=== PATIENT | male | born 1990 | race Two or more races ===

== ENCOUNTER 2024-09-12 12:52 | Emergency (ER) | payer MEDICAID, SELFPAY ==
[2024-09-12] VITALS (9 sets, daily range): BP systolic 123–178; BP diastolic 76–110; PULSE 67–116; RESP 18–20; TEMP 36.4–37.8; O2SAT 93–97; BMI 27.1
--- NOTE | 2024-09-12 13:07 | XR_ITS ---
Examination: CT abdomen and pelvis without contrast. Coronal 3-D reconstructions. Sagittal 2-D reconstructions. Date and time of exam:September 12, 2024 at 1410 hours Comparison August 14, 2022 INDICATIONS: Generalized abdominal pain today CTDI: vol (mGy): 7.69 DLP: (mGycm): 507 Technique: Axial images of the abdomen have been obtained, 3 mm slice thickness Intravenous contrast material has not been administered. Low dose protocols were performed. One or more of the following dose reduction techniques were used; automated exposure control, adjustment of the mA and/or KV according to patient size, use of iterative reconstruction technique. Findings: Dilated bronchi in the lower lobes No focal liver lesions Absent gallbladder Biliary stent satisfactory position No pancreatic or adrenal mass 4 mm nonobstructing left renal calculus No hydronephrosis or ureteral calculi 25 mm fat-containing umbilical hernia Normal appendix No bowel obstruction Contracted urinary bladder IMPRESSION: Mild bibasilar bronchiectasis Biliary stent satisfactory position with no extrahepatic biliary tract obstruction 4 mm nonobstructing left renal calculus
--- NOTE | 2024-09-12 13:08 | PD.EDRME ---
Rapid Medical Screening Exam RME Arrival date/time: 09/12/24 12:52 34-year-old male with a history of a cholecystectomy presents to the emergency room with a chief complaint of 10 out of 10 upper abdominal pain x 1 day. I have greeted and performed a focused initial assessment of this patient. A comprehensive ED assessment and evaluation of the patient, analysis of all test results, and completion of the medical decision making process will be conducted by additional ED providers. Chief Complaint: Abdominal Pain Vital signs reviewed by provider: Yes
[2024-09-12 13:29] LABS: Basophils % (Auto) 0 % (0-2.5); Eosinophils # (Auto) 0.1 Thou/mm3 (0.0-0.5); Eosinophils % (Auto) 0 % (0-10); Hemoglobin 12.7 g/dL (13.5-16.0); Immature Granulocytes % (Auto) 0 % (0-0); Immature Granulocytes Auto 0.02 Thou/mm3 (0.00-0.00); Lymphocytes # (Auto) 0.8 Thou/mm3 (1.0-4.8); Lymphocytes % (Auto) 7 % (10-50); Mean Corpuscular HGB Conc 33.4 g/dl (31.0-37.0); Mean Corpuscular Hemoglobin 29.8 pg (25.0-35.0); Mean Corpuscular Volume 89 fL (80-100); Monocytes % (Auto) 8 % (0-12); Neutrophils # (Auto) 10.2 Thou/mm3 (1.8-7.7); Neutrophils % (Auto) 84 % (37-80); Nucleated Red Blood Cell % 0 /100 WBC (0); Platelet Count 397 Thou/mm3 (140-440); Red Blood Count 4.26 Miln/mm3 (4.50-5.90); White Blood Count 12.1 Thou/mm3 (3.8-10.6)
[2024-09-12] MEDS: ONDANSETRON ODT 4 MG TABRAP PO (13:33)
[2024-09-12] MEDS: HYDROcodone/APAP 5/325 TABLET 1 TAB PO (13:33)
[2024-09-12 13:44] LABS: Collection Type, Urine Clean Catch; Squamous Epithelial Cell,Urine 0 /hpf (0-5)
[2024-09-12 13:53] LABS: Alanine Aminotransferase 245 U/L (10-49); Albumin, Serum 3.7 gm/dL (3.5-5.0); Albumin/Globulin Ratio 1.2 (1.2-2.2); Alkaline Phosphatase 374 U/L (46-116); Anion Gap 8 (7-16); Aspartate Amino Transferase 206 U/L (0-34); BUN/Creatinine Ratio 10 Ratio (12-20); Bilirubin,Total 1.5 mg/dL (0.3-1.2); Blood Urea Nitrogen 9 mg/dL (9-23); Calcium (Corrected) 9.2 mg/dL (8.5-10.1); Carbon Dioxide 25.1 mMol/L (20.0-31.0); Chloride 106 mMol/L (98-107); Creatinine (Component) 0.9 mg/dL (0.6-1.3); Estimated Creatinine Clearance 126.9 mL/min (>60); Glucose 121 mg/dL (74-106); Lipase 28 U/L (12-53); Osmolality,Calculated 277 (275-295); Potassium 3.8 mMol/L (3.4-5.1); Sodium 139 mMol/L (136-145); Total Protein 6.7 gm/dL (5.7-8.2); eGFR > 60 See Note
[2024-09-12 13:59] LABS: Bacteria,Urine Rare; Bilirubin,Urine 1+ (Negative); Blood,Urine Negative (Negative); Clarity,Urine Clear (Clear/Hazy); Color,Urine Yellow (Lt Yel-Yel); Glucose, Urine Negative (Negative); Ketones,Urine Negative (Negative); Leukocyte Esterase,Urine Negative (Negative); Nitrite,Urine Negative (Negative); PH,Urine 6.5 (5.0-7.0); Protein,Urine Negative (Neg - Trace); RBC,Urine 5 /hpf (0-3); Specific Gravity,Urine 1.017 (1.001-1.035); Urobilinogen,Urine OVER mg/dL (0.0-1.0); WBC,Urine 2 /hpf (0-5)
--- NOTE | 2024-09-12 17:55 | PD.EDADULT ---
ED General RME/HPI General Chief complaint: Abdominal Pain Stated complaint: ABD PAIN Time Seen by Provider: 09/12/24 17:54 Arrival date/time: 09/12/24 12:52 CC: Right upper quadrant abdominal pain HPI onset this afternoon progressive increase in severity fairly tender. The patient is significant history of a cholecystectomy in 2021. Patient has a biliary stent. Patient states everything is fine until this afternoon. Currently the pain is an 8 on 10 scale patient is nauseated with no vomiting. Review of the medical records show cholecystectomy was performed by Dr. Guillen in 2021. RME / HPI RME / HPI narrative: 09/12/24 12:52 34-year-old male with a history of a cholecystectomy presents to the emergency room with a chief complaint of 10 out of 10 upper abdominal pain x 1 day. I have greeted and performed a focused initial assessment of this patient. A comprehensive ED assessment and evaluation of the patient, analysis of all test results, and completion of the medical decision making process will be conducted by additional ED providers. Related Data Previous Rx's ?Medication ?Instructions ?Recorded oxycodone-acetaminophen 5 mg-325 1 tab PO Q6H PRN pain #10 tabs 03/01/22 mg tablet (Percocet) ibuprofen 800 mg tablet 800 mg PO TID PRN pain #30 tabs 03/09/22 Allergies Allergy/AdvReac Type Severity Reaction Status Date / Time Sulfa (Sulfonamide Allergy Severe Hives Verified 09/12/24 12:55 Antibiotics) Review of Systems Review of Systems Narrative Review of Systems: GEN: No fever, no chills, no weight loss EYES: No discharge, no visual changes, no pain HEENT: No ear pain, no congestion, no sore throat PULM: No shortness of breath, no cough, no congestion CV: No chest pain, no dyspnea on exertion, no palpitations GI: + nausea, no vomiting, no diarrhea, + pain, no constipation : No frequency, no urgency, no dysuria MUSC/SKEL: No joint pain, no back pain SKIN: No rash PSYCH: No hallucinations, no depression HEME/LYMPH: No easy bleeding or bruising tendencies NEURO: No weakness, no headache ED Exam Narrative Physical exam: [General: Moderate discomfort but not in any acute distress Head normocephalic HEENT: Within acceptable limits Neck is supple nontender Chest equal chest rise nontender to palpation Respiratory: Clear to auscultation no wheezes crackles or rubs CV: Rate rhythm is regular no murmurs rubs or clicks Abdomen: Right upper quadrant tenderness exquisite tenderness, with reflexive guarding no rebound tenderness mild epigastric no left upper quadrant no lower quadrant tenderness with palpation positive bowel sounds. Back: No CVA tenderness no spinous process tenderness from cervical spine thoracic and lumbar spine Skin: Intact no petechiae rash induration ulceration or crepitus Extremities: Moving all extremity against resistance cap refill less than 2 seconds neurosensory intact Neuro: Awake alert oriented x3 Glascow coma 15 no focal deficits] Course Quality Measures none Orders Category Date Time Status Saline [Insert IV] NOW Care 09/12/24 19:28 Active Transfer to another facility [Transfer/Discharge] Stat Discharge 09/12/24 19:[address] abdomen pelvis wo con Stat Exams 09/12/24 13:07 Completed Blood Culture (Lab) Stat Lab 09/12/24 19:45 Received CBC Stat Lab 09/12/24 13:15 Completed CMP [Comprehensive Metabolic Panel] Stat Lab 09/12/24 13:15 Completed Lipase Stat Lab 09/12/24 13:15 Completed UA [Urinalysis] Stat Lab 09/12/24 13:36 Completed Urine Culture Stat Lab 09/12/24 13:36 Received HYDROcodone*/APAP 5/325 [[place] 5/325] Med 09/12/24 13:07 Discontinued 1 tab PO X1 ONE Morphine Inj Med 09/12/24 19:37 Discontinued 4 mg IVP X1 ONE Ondansetron Inj [Zofran Inj] Med 09/12/24 19:37 Discontinued 4 mg IV X1 ONE Ondansetron Odt [Zofran Odt] Med 09/12/24 13:07 Discontinued 4 mg PO X1 ONE Piper/Tazo 3.375 gm Premix [Zosyn] Med 09/12/24 19:28 Discontinued 3.375 gm in 50 ml IV X1 Sodium Chloride 0.9% 1000 ml [Ns] 1,000 ml Med 09/12/24 19:38 Active IV 125 mls/hr Sodium Chloride 0.9% 1000 ml [Ns] 1,000 ml Med 09/12/24 19:28 Discontinued IV 999 mls/hr oxyCODONE/APAP 5/325 [Percocet 5/325] Med 09/12/24 17:43 Discontinued 1 tab PO X1 ONE Vital Signs Vital signs: Vital Signs Temperature 97.5 F 09/12/24 13:12 Pulse Rate 86 09/12/24 13:12 Respiratory Rate 20 09/12/24 13:12 Blood Pressure 123/76 09/12/24 13:12 Pulse Oximetry (%) 97 09/12/24 13:12 Oxygen Delivery Method Room Air 09/12/24 13:12 [facility] Patient data External records reviewed:: [facility] previous records Clinical information provided by:: patient Social determinants that could affect healthcare access:: none Patient has the following chronic illnesses:: None How is presenting disease/condition affected by chronic disease/condition?: uneffected by Evaluation data The following diagnostics were reviewed and interpreted by me:: lab results and radiology exam(s) Lab and/or radiology exams considered but not ordered:: CC: Leukocytosis of 12.1 H&H of 12.7 and 38.0. No thrombocytopenia CMP shows no acute electrolyte imbalances. T. bili is elevated at 1.5 there is transaminitis. When compared to last lab draw which is in August 2023 there is a worsening of the transaminitis as well as the T. bili rise. Interpretation Summary: Concern for cholangitis. Patient's case discussed with Dr. Estrada GI at 1930 who agrees the patient probably has cholangitis secondary to an obstructed biliary stent. Will start the patient on broad-spectrum antibiotics and transfer out. Medications Medications considered but not ordered:: None Medication administrations:: Medication Administration History Sodium Chloride (Ns) 1,000 mls @ 125 mls/hr IV .Q8H MARTI Stop: 10/12/24 19:37 Last Admin: 09/12/24 19:55 Dose: 125 mls/hr Documented By: EE Discontinued Medications Hydrocodone Bitart/Acetaminophen (Hydrocodone/Apap 5/325 Tablet) 1 tab PO X1 ONE Stop: 09/12/24 13:08 Last Admin: 09/12/24 13:33 Dose: 1 tab Documented By: ELVIN Sodium Chloride (Ns) 1,000 mls @ 999 mls/hr IV .Q1H1M ONE Stop: 09/12/24 20:28 Last Admin: 09/12/24 19:53 Dose: 999 mls/hr Documented By: PRAVEEN Piperacillin/Tazobactam/Dextrose (Zosyn) 3.375 gm in 50 mls @ 100 mls/hr IV X1 ONE Stop: 09/12/24 19:57 Last Admin: 09/12/24 19:54 Dose: 100 mls/hr Documented By: EE Morphine Sulfate (Morphine Sulf Inj 10 Mg/Ml Vial) 4 mg IVP X1 ONE Stop: 09/12/24 19:38 Last Admin: 09/12/24 19:54 Dose: 4 mg Documented By: EE Ondansetron HCl (Ondansetron Odt 4 Mg Tabrap) 4 mg PO X1 ONE; Protocol Stop: 09/12/24 13:08 Last Admin: 09/12/24 13:33 Dose: 4 mg Documented By: KF Ondansetron HCl (Ondansetron Inj 2 Mg/Ml Inj 2 Ml) 4 mg IV X1 ONE; Protocol Stop: 09/12/24 19:38 Last Admin: 09/12/24 19:54 Dose: 4 mg Documented By: PRAVEEN Oxycodone/Acetaminophen (Oxycodone/Apap 5/325 Tablet) 1 tab PO X1 ONE Stop: 09/12/24 17:44 Last Admin: 09/12/24 17:57 Dose: 1 tab Documented By: KF None Consultations Consultation(s) initiated? (list below): No Consultation #1 (Physician, Specialty, Details): LIANA Arvizu Time: 21:05 Diagnosis Differential Diagnosis ED Complaint MDM: Cholangitis obstructed biliary stent sepsis Most likely diagnosis given after review of the tests above:: Obstructed biliary stent cholangitis Admission Indicated Admission indicated?: indicated Explain why admission is indicated or not indicated:: Transfer Admission Request Was there a request for admission?: No Disposition Plan Disposition Plan: Transfer Medical Decision Making Differential Diagnosis Differential Diagnosis: Cholangitis obstructed biliary stent sepsis Lab Data 09/12/24 13:15 09/12/24 13:15 Labs: Lab Results 09/12/24 09/12/24 Range/Units 13:15 13:36 WBC 12.1 H (3.8-10.6) Thou/mm3 RBC 4.26 L (4.50-5.90) Miln/mm3 Hgb 12.7 L (13.5-16.0) g/dL Hct 38.0 L (41.0-53.0) % MCV 89 (80-100) fL MCH 29.8 (25.0-35.0) pg MCHC 33.4 (31.0-37.0) g/dl RDW Std Deviation 43.0 (35.1-43.9) fL Plt Count 397 (140-440) Thou/mm3 Neut % (Auto) 84 H (37-80) % Lymph % (Auto) 7 L (10-50) % [place] % (Auto) 8 (0-12) % Eos % (Auto) 0 (0-10) % Baso % (Auto) 0 (0-2.5) % Neut # (Auto) 10.2 H (1.8-7.7) Thou/mm3 Lymph # (Auto) 0.8 L (1.0-4.8) Thou/mm3 [place] # (Auto) 1.0 H (0.0-0.8) Thou/mm3 Eos # (Auto) 0.1 (0.0-0.5) Thou/mm3 Baso # (Auto) 0.0 (0.0-0.2) Thou/mm3 Immature Gran # (Auto) 0.02 H (0.00-0.00) Thou/mm3 Absolute Nucleated RBC 0.00 (0.00-0.00) Thou/mm3 Immature Gran % 0 (0-0) % Nucleated RBC % 0 (0) /100 WBC Sodium 139 (136-145) mMol/L Potassium 3.8 (3.4-5.1) mMol/L Chloride 106 (98-107) mMol/L Carbon Dioxide 25.1 (20.0-31.0) mMol/L Anion Gap 8 (7-16) BUN 9 (9-23) mg/dL Creatinine 0.9 (0.6-1.3) mg/dL Estim Creat Clear Calc 126.9 (>60) mL/min eGFR > 60 (60 - ) See Note BUN/Creatinine Ratio 10 L (12-20) Ratio Glucose 121 H (74-106) mg/dL Calculated Osmolality 277 (275-295) Calcium 9.0 (8.3-10.6) mg/dL Corrected Calcium 9.2 (8.5-10.1) mg/dL Total Bilirubin 1.5 H (0.3-1.2) mg/dL AST 206 H (0-34) U/L ALT 245 H (10-49) U/L Alkaline Phosphatase 374 H (46-116) U/L Total Protein 6.7 (5.7-8.2) gm/dL Albumin 3.7 (3.5-5.0) gm/dL Globulin 3.0 (2.3-3.5) gm/dL Albumin/Globulin Ratio 1.2 (1.2-2.2) Lipase 28 (12-53) U/L Ur Collection Type Clean Catch Urine Color Yellow (Lt Yel-Yel) Urine Clarity Clear (Clear/Hazy) Urine pH 6.5 (5.0-7.0) Ur Specific [place] 1.017 (1.001-1.035) Urine Protein Negative (Neg - Trace) Urine Glucose (UA) Negative (Negative) Urine Ketones Negative (Negative) Urine Blood Negative (Negative) Urine Nitrite Negative (Negative) Urine Bilirubin 1+ A (Negative) Urine Urobilinogen (Auto) OVER (0.0-1.0) mg/dL Ur Leukocyte Esterase Negative (Negative) Urine RBC 5 H (0-3) /hpf Urine WBC 2 (0-5) /hpf Ur Squamous Epith Cells 0 (0-5) /hpf Urine Bacteria Rare (None) Discharge Plan Plan Patient Disposition: [facility] Pt Being Transferred to: [facility] Needed for Transfer: Gastroenterology Patient condition on transfer: Stable Prescriptions/Referrals Prescriptions/Med Rec: No Action ibuprofen 800 mg tablet 800 mg PO TID PRN (Reason: pain) Qty: 30 0RF oxycodone-acetaminophen [Percocet] 5-325 mg tablet 1 tab PO Q6H MDD 4 tabs PRN (Reason: pain) Qty: 10 0RF Referrals: Tanner Ferreira MD [Primary Care Provider] - In 1 week Problem List Clinical Impression: Ascending cholangitis, Biliary anastomotic stent occlusion Patient/Caregiver Discharge Instructions Print Language: Botswanan Stand Alone Forms: Sonia Award Info., Patient Portal Info Letter PA/INSTRUMENT MAKER AND REPAIRER Supervising Physician PA/INSTRUMENT MAKER AND REPAIRER Supervising Physician: Ethan Chance ENP
[2024-09-12] MEDS: oxyCODONE/APAP 5/325 TABLET 1 TAB PO (17:57)
[2024-09-12] MEDS: SODIUM CHLORIDE 0.9% 1000 ML 1,000 ML 999 ML IV ×2 (19:53→22:56)
[2024-09-12] MEDS: ONDANSETRON INJ 2 MG/ML INJ 2 ML 4 MG IV (19:54)
[2024-09-12] MEDS: MORPHINE SULF INJ 10 MG/ML VIAL 4 MG IVP (19:54)
[2024-09-12] MEDS: PIPER/TAZO 3.375 GM PREMIX 3.375 GM/50 ML BAG IV (19:54)
[2024-09-12] MEDS: SODIUM CHLORIDE 0.9% 1000 ML 1,000 ML 125 ML IV (19:55)
--- NOTE | 2024-09-12 21:13 | PC.NURSE ---
THIS PT IS ACCEPTED TO [facility] BY DR. WYNN. THIS IS ER:ER TRANSFER AND NUMBER FOR REPORT IS [phone]. BAUDILIO WAS THE FACILITY REP I SPOKE WITH FOR ACCEPTING INFORMATION.
[2024-09-12] MEDS: ACETAMINOPHEN IVPB 1,000 MG/100 ML VIAL 250 MG IV (22:55)
[2024-09-12 23:25] LABS: Lactate (Lactic Acid) 3.1 mMol/L (0.4-2.0)
[2024-09-12 23:53] LABS: Procalcitonin 1.76 ng/ml (0.0-0.49)
[2024-09-13] VITALS (13 sets, daily range): BP systolic 92–152; BP diastolic 61–91; PULSE 100–121; RESP 16–19; TEMP 36.8–38.3; O2SAT 93–99
[2024-09-13 01:04] LABS: Basophils % (Auto) 0 % (0-2.5); Eosinophils % (Auto) 0 % (0-10); Hematocrit 36.3 % (41.0-53.0); Hemoglobin 12.2 g/dL (13.5-16.0); Immature Granulocytes % (Auto) 0 % (0-0); Immature Granulocytes Auto 0.04 Thou/mm3 (0.00-0.00); Lymphocytes # (Auto) 0.4 Thou/mm3 (1.0-4.8); Lymphocytes % (Auto) 4 % (10-50); Mean Corpuscular HGB Conc 33.6 g/dl (31.0-37.0); Mean Corpuscular Hemoglobin 29.3 pg (25.0-35.0); Mean Corpuscular Volume 87 fL (80-100); Monocytes # (Auto) 0.2 Thou/mm3 (0.0-0.8); Monocytes % (Auto) 2 % (0-12); Neutrophils # (Auto) 9.7 Thou/mm3 (1.8-7.7); Neutrophils % (Auto) 94 % (37-80); Nucleated Red Blood Cell % 0 /100 WBC (0); Platelet Count 294 Thou/mm3 (140-440); RDW Standard Deviation 41.8 fL (35.1-43.9); Red Blood Count 4.16 Miln/mm3 (4.50-5.90); White Blood Count 10.3 Thou/mm3 (3.8-10.6)
[2024-09-13 01:35] LABS: Alanine Aminotransferase 230 U/L (10-49); Albumin, Serum 3.5 gm/dL (3.5-5.0); Albumin/Globulin Ratio 1.3 (1.2-2.2); Alkaline Phosphatase 330 U/L (46-116); Anion Gap 9 (7-16); Aspartate Amino Transferase 133 U/L (0-34); BUN/Creatinine Ratio 11 Ratio (12-20); Bilirubin,Total 5.4 mg/dL (0.3-1.2); Blood Urea Nitrogen 8 mg/dL (9-23); Calcium 8.7 mg/dL (8.3-10.6); Calcium (Corrected) 9.1 mg/dL (8.5-10.1); Carbon Dioxide 23.7 mMol/L (20.0-31.0); Chloride 104 mMol/L (98-107); Creatinine (Component) 0.7 mg/dL (0.6-1.3); Estimated Creatinine Clearance 163.2 mL/min (>60); Globulin 2.7 gm/dL (2.3-3.5); Glucose 89 mg/dL (74-106); Osmolality,Calculated 271 (275-295); Potassium 3.3 mMol/L (3.4-5.1); Sodium 137 mMol/L (136-145); Total Protein 6.2 gm/dL (5.7-8.2); eGFR > 60 See Note
[2024-09-13 02:24] LABS: Reflex Lactate? Y
[2024-09-13 02:43] LABS: Lactic Acid, 3 HR 1.7 mMol/L (0.4-2.0)
[2024-09-13] MEDS: SODIUM CHLORIDE 0.9% 1000 ML 1,000 ML 125 ML IV (04:22)
[2024-09-13] MEDS: SODIUM CHLORIDE 0.9% 1000 ML 1,000 ML 999 ML IV (04:22)
[2024-09-13] MEDS: PIPER/TAZO 3.375 GM PREMIX 3.375 GM/50 ML BAG IV (04:33)
--- NOTE | 2024-09-13 07:17 | PC.NURSE ---
REPORT CALLED TO [facility]. ALL QUESTIONS ANSWERED.
== END 2024-09-13 07:15 | disposition short-term general hospital (02) ==
PROVIDERS: Nurse Practitioner Family; Registered Nurse General Practice; Emergency Provider Emergency Medicine; PCP Family Medicine
DX: K83.09 Other cholangitis (principal)
CPT/HCPCS: 36415; 74176; 80053; 81001; 83605; 83690; 84145; 85025; 87040; 87077; 87086; 87186; 96361; 96365; 96367; 96375; 99284; 99285; J0131; J2270; J2405; J2543; J7030; Q0162; A9270

== ENCOUNTER 2024-11-05 11:01 | Emergency (ER) | payer MEDICAID, SELFPAY ==
[2024-11-05 11:05] VITALS: BMI 27.9
[2024-11-05 11:06] VITALS: BP 152/100; PULSE 83; RESP 17; TEMP 36.7; O2SAT 97
[2024-11-05 11:07] VITALS: BMI 27.9
--- NOTE | 2024-11-05 11:33 | XR_ITS ---
Examination: CT abdomen with intravenous contrast CT pelvis with intravenous contrast 2-D coronal reconstructions 2-D sagittal reconstructions Date and time of exam:November 05, 2024 at 12:10 PM Indications: Abdominal pain and rectal bleeding today. CTDI: vol (mGy) 8.62 DLP: (mGycm) 500 Technique: Multiple axial sections of the abdomen and pelvis have been obtained. 64 slice high-resolution scanner used. 3 mm axial sections have been obtained, post intravenous injection 60 cc [id number] 2-D sagittal, coronal reconstructions obtained. Low dose protocols were performed. One or more of the following dose reduction techniques were used; automated exposure control, adjustment of the mA and/or KV according to patient size, use of iterative reconstruction technique. Findings: Right infiltration throughout the liver no focal liver lesions Absent gallbladder Spleen not enlarged No pancreatic mass 8mm fat-containing adrenal adenoma 3 mm nonobstructing left renal calculus Aorta normal size Small fat-containing umbilical hernia. Normal appendix. No diverticulitis or nonspecific colitis pattern Normal seminal vesicles No prostatomegaly Contracted urinary bladder No rectal wall thickening No perianal abscess Impression: Fatty infiltration throughout the liver. 3 mm nonobstructing left renal calculus Normal appendix Negative for diverticulitis or nonspecific colitis pattern
--- NOTE | 2024-11-05 11:34 | PC.NURSE ---
PT BIB PD FOR MEDICAL CLEARANCE. PT STATES THAT THEY BEEN HAVING BLOOD IN STOOLS. PT STATES THAT STOOL IS DARK
[2024-11-05 12:16] LABS: Basophils # (Auto) 0.1 Thou/mm3 (0.0-0.2); Basophils % (Auto) 1 % (0-2.5); Eosinophils # (Auto) 0.1 Thou/mm3 (0.0-0.5); Eosinophils % (Auto) 1 % (0-10); Hematocrit 40.6 % (41.0-53.0); Hemoglobin 14.2 g/dL (13.5-16.0); Immature Granulocytes % (Auto) 0 % (0-0); Immature Granulocytes Auto 0.02 Thou/mm3 (0.00-0.00); Lymphocytes # (Auto) 1.5 Thou/mm3 (1.0-4.8); Lymphocytes % (Auto) 20 % (10-50); Mean Corpuscular Hemoglobin 29.5 pg (25.0-35.0); Mean Corpuscular Volume 84 fL (80-100); Monocytes # (Auto) 0.7 Thou/mm3 (0.0-0.8); Monocytes % (Auto) 9 % (0-12); Neutrophils # (Auto) 5.1 Thou/mm3 (1.8-7.7); Neutrophils % (Auto) 69 % (37-80); Nucleated Red Blood Cell % 0 /100 WBC (0); Platelet Count 317 Thou/mm3 (140-440); RDW Standard Deviation 41.1 fL (35.1-43.9); Red Blood Count 4.81 Miln/mm3 (4.50-5.90); White Blood Count 7.4 Thou/mm3 (3.8-10.6)
[2024-11-05 12:27] LABS: INR 1.1 (0.9-1.3); Partial Thromboplastin Time 28.5 Seconds (22.0-36.0); Prothrombin Time 11.5 Seconds (9.0-12.2)
[2024-11-05 12:30] LABS: B-Type Natriuretic Peptide < 20 pg/mL (0-100)
[2024-11-05 12:32] LABS: Alanine Aminotransferase 12 U/L (10-49); Albumin/Globulin Ratio 1.6 (1.2-2.2); Alkaline Phosphatase 89 U/L (46-116); Anion Gap 10 (7-16); Aspartate Amino Transferase 17 U/L (0-34); BUN/Creatinine Ratio 11 Ratio (12-20); Bilirubin,Total 0.4 mg/dL (0.3-1.2); Blood Urea Nitrogen 9 mg/dL (9-23); Calcium 8.8 mg/dL (8.3-10.6); Calcium (Corrected) 8.8 mg/dL (8.5-10.1); Carbon Dioxide 24.8 mMol/L (20.0-31.0); Chloride 109 mMol/L (98-107); Creatinine (Component) 0.8 mg/dL (0.6-1.3); Estimated Creatinine Clearance 154.5 mL/min (>60); Globulin 2.5 gm/dL (2.3-3.5); Glucose 94 mg/dL (74-106); Lipase 37 U/L (12-53); Osmolality,Calculated 285 (275-295); Potassium 4.6 mMol/L (3.4-5.1); Sodium 144 mMol/L (136-145); Total Protein 6.5 gm/dL (5.7-8.2); Troponin I < 0.020 ng/mL (0.0-0.045); eGFR > 60 See Note
--- NOTE | 2024-11-05 13:28 | PC.NURSE ---
pt not found in room or in the e.d. per mt, police cited pt out while nurse busy in another room.
--- NOTE | 2024-11-05 13:32 | EDNOTE_ITS ---
ED Abdominal Pain RME/HPI General Chief Complaint: Abdominal Pain Stated complaint: MEDICAL CLEARANCE,ABD PAIN/BLOOD IN [place] x 2 DAYS Time seen by provider: 11/05/24 11:13 Arrival date/time: 11/05/24 11:01 RME / HPI RME / HPI narrative: 34 year old male with history of s/p cholecystectomy, choledocholithiasis with stone extraction and stent placement 1 month ago per patient, presents to the ED BIB [facility] for medical clearance for incarceration today. Patient complains of abdominal pain that began yesterday. Described as aching in sensation that is located most to the left upper and lower abdomen without radiation. Accompanied by dark stools, burning rectal pain, increased urination, and foul smelling urine. Denies fevers, chills, sweats. Denies chest pain, cough, shortness of breath. Denies nausea, vomiting, diarrhea, constipation. No other associated symptoms reported. Related Data Previous Rx's ?Medication ?Instructions ?Recorded oxycodone-acetaminophen 5 mg-325 1 tab PO Q6H PRN pain #10 tabs 03/01/22 mg tablet (Percocet) ibuprofen 800 mg tablet 800 mg PO TID PRN pain #30 t abs 03/09/22 Allergies Allergy/AdvReac Type Severity Reaction Status Date / Time Sulfa (Sulfonamide Allergy Severe Hives Verified 09/12/24 12:55 Antibiotics) Review of Systems Review of Systems Narrative Review of Systems: GEN: No fever, no chills, no weight loss EYES: No discharge, no visual changes, no pain HEENT: No ear pain, no congestion, no sore throat PULM: No shortness of breath, no cough, no congestion CV: No chest pain, no dyspnea on exertion, no palpitations GI: No nausea, no vomiting, no diarrhea, +pain, +black stools, +rectal pain, no constipation : No frequency, no urgency, no dysuria MUSC/SKEL: No joint pain, no back pain SKIN: No rash NEURO: No weakness, no headache Past Medical History Past Medical History NEUROLOGIC: Negative Neurological Disorders CARDIAC: Negative Cardiac Disorders GASTROINTESTINAL: Negative Gastrointestinal Disorders GENITOURINARY: Negative Genitourinary Disorders or Renal Disease MUSCULOSKELETAL: Negative Musculoskeletal Disorders ENDOCRINE: Negative Endocrine Disorders Surgical History SURGICAL: Positive Ear Surgery and Throat Surgery Social History SMOKING STATUS: Current every day smoker SECOND HAND EXPOSURE: No ED Exam Narrative Physical exam: GENERAL APPEARANCE: alert and oriented x 4, well-developed, well-nourished, no acute distress HEENT: Normocephalic, atraumatic; pupils equal, round, reactive to light; EOMI; mucous membranes pink, moist; oropharynx clear NECK: Supple LUNGS: CTABL; no wheezes, no rales, no rhonchi HEART: Regular rate, regular rhythm; normal S1, S2; no murmurs ABDOMEN: non distended; normal BS; soft, LLQ tenderness, no guarding, no rebound; no masses, no organomegaly, no hernia BACK: no CVA tenderness EXTREMITIES: atraumatic; no edema NEUROLOGIC: awake; alert and oriented x4; cranial nerves II-XII grossly intact; no focal sensory or motor deficits PSYCHIATRIC: appropriate mood and affect SKIN: warm, dry, normal color; no rashes Course Quality Measures none Orders Category Date Time Status CT Screening NOW Care 11/05/24 11:33 Completed Infrastructure Project Manager NOW Care 11/05/24 11:33 Completed EKG (ED ONLY) *Do not use* NOW Care 11/05/24 11:[address] abdomen pelvis w con Stat Exams 11/05/24 11:33 Completed EKG (ED Only) Stat Exams 11/05/24 11:33 Ordered B-Type Natriuretic Peptide Stat Lab 11/05/24 11:48 Completed CBC Stat Lab 11/05/24 11:48 Completed Comprehensive Metabolic Panel Stat Lab 11/05/24 11:48 Completed Lipase Stat Lab 11/05/24 11:48 Completed Magnesium Stat Lab 11/05/24 11:48 Completed Partial Thromboplastin Time Stat Lab 11/05/24 11:48 Completed Prothrombin Time with INR Stat Lab 11/05/24 11:48 Completed Troponin I Stat Lab 11/05/24 11:48 Completed Vital Signs Vital signs: Vital Signs Temperature 98.1 F 11/05/24 11:06 Pulse Rate 83 11/05/24 11:06 Respiratory Rate 17 11/05/24 11:06 Blood Pressure 152/100 H 11/05/24 11:06 Pulse Oximetry (%) 97 11/05/24 11:06 Oxygen Delivery Method Room Air 11/05/24 11:06 Pulse ox is 97% on room air which is adequate. Abdominal Pain MDM MDM Narrative MDM Narrative:: Payton Richardson am scribing for and in the presence of Dr. Álvarez. 1330: Notified by RN that the patient was cited out by PD and xander. Patient data External records reviewed:: [facility] previous records (I reviewed ED visit on 12/2024 where he was transferred for ERCP) Clinical information provided by:: patient and law enforcement Social determinants that could affect healthcare access:: substance use Patient has the following chronic illnesses:: s/p cholecystectomy, choledocholithiasis with stone extraction and stent placement 1 month ago How is presenting disease/condition affected by chronic disease/condition?: exacerbated by Evaluation data The following diagnostics were reviewed and interpreted by me:: lab results and radiology exam(s) Lab and/or radiology exams considered but not ordered:: None Interpretation Summary: Ordering Physician: Malia Álvarez MD Date of Service: 11/05/24 Procedure(s): CT abdomen pelvis w con Accession Number(s): [id number] cc: Temo Miramontes MD; NO PRIMARY/FAMILY,PHYSICIAN; Malia Álvarez MD~ Examination: CT abdomen with intravenous contrast CT pelvis with intravenous contrast 2-D coronal reconstructions 2-D sagittal reconstructions Date and time of exam:November 05, 2024 at 12:10 PM Indications: Abdominal pain and rectal bleeding today. CTDI: vol (mGy) 8.62 DLP: (mGycm) 500 Technique: Multiple axial sections of the abdomen and pelvis have been obtained. 64 slice high-resolution scanner used. 3 mm axial sections have been obtained, post intravenous injection 60 cc [id number] 2-D sagittal, coronal reconstructions obtained. Low dose protocols were performed. One or more of the following dose reduction techniques were used; automated exposure control, adjustment of the mA and/or KV according to patient size, use of iterative reconstruction technique. Findings: Right infiltration throughout the liver no focal liver lesions Absent gallbladder Spleen not enlarged No pancreatic mass 8mm fat-containing adrenal adenoma 3 mm nonobstructing left renal calculus Aorta normal size Small fat-containing umbilical hernia. Normal appendix. No diverticulitis or nonspecific colitis pattern Normal seminal vesicles No prostatomegaly Contracted urinary bladder No rectal wall thickening No perianal abscess Impression: Fatty infiltration throughout the liver. 3 mm nonobstructing left renal calculus Normal appendix Negative for diverticulitis or nonspecific colitis pattern Dictated By: Temo Miramontes MD Signed By: <Electronically signed by Temo Miramontes MD in OV> 11/05/24 1411 Medications / Prescriptions Medications or Prescriptions considered but not ordered:: NOne Medication administrations:: None Consultations Consultation(s) initiated? (list below): No Diagnosis Differential diagnosis abdominal pain: abdominal pain, calculus of kidney, constipation, diverticulitis and gastroenteritis Most likely diagnosis given after review of the tests above:: Abdominal pain Admission Indicated Admission indicated?: not indicated Explain why admission is indicated or not indicated:: Patient eloped Admission Request Was there a request for admission?: No Disposition Plan Disposition Plan: other (specify) (Eloped ) Discharge Plan Plan Patient Disposition: Elopement Prescriptions/Referrals Prescriptions/Med Rec: No Action ibuprofen 800 mg tablet 800 mg PO TID PRN (Reason: pain) Qty: 30 0RF oxycodone-acetaminophen [Percocet] 5-325 mg tablet 1 tab PO Q6H MDD 4 tabs PRN (Reason: pain) Qty: 10 0RF Referrals: No Primary/Family,Physician [Primary Care Provider] - In 1 week Problem List Clinical Impression: Abdominal pain Patient/Caregiver Discharge Instructions Print Language: Burmese
== END 2024-11-05 13:29 | disposition left against medical advice (07) ==
LOC: SERX 11:34
PROVIDERS: Emergency Provider Emergency Medicine
DX: Z02.89 Encounter for other administrative examinations (principal); Z90.49 Acquired absence of other specified parts of digestive tract; Z53.29 Procedure and treatment not carried out because of patient's decision for other reasons; K76.0 Fatty (change of) liver, not elsewhere classified; N20.0 Calculus of kidney
CPT/HCPCS: 36415; 74177; 80053; 83690; 83735; 83880; 84484; 85025; 85610; 85730; 93005; 99281; A4649; Q9967

== ENCOUNTER 2024-11-25 04:44 | Emergency (ER) | payer MEDICAID, SELFPAY ==
[2024-11-25 05:01] VITALS: BP 158/91; PULSE 115; RESP 18; TEMP 37.4; O2SAT 96
--- NOTE | 2024-11-25 05:58 | PD.EDURI ---
Upper Respiratory Inf. RME/HPI General Chief Complaint: Flu Like Symptoms Stated Complaint: BODYACHES,COUGH,SORE THROAT Time Seen by Provider: 11/25/24 05:46 Arrival date/time: 11/25/24 04:44 Limitations: no limitations RME / HPI RME / HPI Narrative: Patient is a 34-year-old male [place] with concerns for body aches, vomiting and feeling generally unwell. Denies fevers however does endorse chills. Denies recent travel sick contacts cough runny nose chest pain abdominal pain dysuria hematuria melena bloody stools. No drugs no alcohol no smoking. Patient is currently unemployed MD Complaint: sore throat Related Data Previous Rx's ?Medication ?Instructions ?Recorded oxycodone-acetaminophen 5 mg-325 1 tab PO Q6H PRN pain #10 tabs 03/01/22 mg tablet (Percocet) ibuprofen 800 mg tablet 800 mg PO TID PRN pain #30 tabs 03/09/22 Allergies Allergy/AdvReac Type Severity Reaction Status Date / Time Sulfa (Sulfonamide Allergy Severe Hives Verified 11/25/24 04:45 Antibiotics) Review of Systems Review of Systems Systems Reviewed: All systems reviewed, normal except as documented ED Exam General Limitations: Present no limitations Head Head exam: Present atraumatic Eye Eye exam: Present normal appearance ENT ENT exam: Present mucous membranes moist and other (Posterior oropharynx erythematous, no purulence no masses, uvula is midline, tongue is not deviated) Neck Neck exam: Present normal inspection Chest Chest inspection: Present normal inspection Respiratory Respiratory exam: Present normal lung sounds bilaterally Cardiovascular Cardiovascular exam: Present normal rhythm and tachycardia Abdominal Exam Abdominal exam: Present soft; Absent distention, tenderness or normal bowel sounds Extremities Exam Extremities exam: Present normal inspection Neurological Exam Neurological exam: Present alert, oriented X3, CN II-XII intact, normal gait and motor sensory deficit Psychiatric Psychiatric exam: Present normal affect Skin Skin exam: Present warm, dry and normal color; Absent rash or diaphoresis Course Orders Category Date Time Status Bedside COVID-19 Antigen Test NOW Care 11/25/24 05:46 Active Bedside Influenza A&B Antigen Test NOW Care 11/25/24 05:47 Active Strep A Rapid Stat Lab 11/25/24 05:47 Ordered Ketorolac Inj [Toradol Inj] Med 11/25/24 05:48 Once 15 mg IM X1 ONE Ondansetron Odt [Zofran Odt] Med 11/25/24 05:51 Once 4 mg PO X1 ONE Vital Signs Vital signs: Vital Signs Temperature 99.4 F 11/25/24 05:01 Pulse Rate 115 H 11/25/24 05:01 Respiratory Rate 18 11/25/24 05:01 Blood Pressure 158/91 H 11/25/24 05:01 Pulse Oximetry (%) 96 11/25/24 05:01 Oxygen Delivery Method Room Air 11/25/24 05:01 Upper Respiratory Infection Medications / Prescriptions Medication administrations:: Medication Administration History Ketorolac Tromethamine (Ketorolac Inj 60 Mg/2 Ml Vial) 15 mg IM X1 ONE Stop: 11/25/24 05:49 Ondansetron HCl (Ondansetron Odt 4 Mg Tabrap) 4 mg PO X1 ONE; Protocol Stop: 11/25/24 05:52 Discharge Plan Prescriptions/Referrals Prescriptions/Med Rec: No Action ibuprofen 800 mg tablet 800 mg PO TID PRN (Reason: pain) Qty: 30 0RF oxycodone-acetaminophen [Percocet] 5-325 mg tablet 1 tab PO Q6H MDD 4 tabs PRN (Reason: pain) Qty: 10 0RF Patient/Caregiver Discharge Instructions Print Language: Venezuelan
[2024-11-25] MEDS: ONDANSETRON ODT 4 MG TABRAP PO (06:08)
[2024-11-25] MEDS: KETOROLAC INJ 60 MG/2 ML VIAL 15 MG IM (06:10)
[2024-11-25 06:28] LABS: Strep A Rapid Negative (Negative)
--- NOTE | 2024-11-25 06:48 | PD.EDADDENDU ---
Emergency Room Addendum <Jennifer Uriarte - Last Filed: 11/25/24 07:28> Addendum Narrative: 0600: Care assumed from Dr. Vanessa, the previous shift emergency physician. Past medical, surgical, social and family history reviewed. Vitals and home medications reviewed. I will assume the care of the patient at this time, pending remainder of diagnostic tests and final disposition. Please refer to the emergency department record for history and examination from initial visit.? Physical exam by me shows patient under no acute distress at this time. <Jaspreet Campos MD - Last Filed: 11/25/24 07:32> Addendum Narrative: 0600: Care assumed from Dr. Vanessa, the previous shift emergency physician. Past medical, surgical, social and family history reviewed. Vitals and home medications reviewed. I will assume the care of the patient at this time, pending remainder of diagnostic tests and final disposition. Please refer to the emergency department record for history and examination from initial visit.? Physical exam by me shows patient under no acute distress at this time. Patient was signed out by Dr. Rao at 0600 hrs. as someone who has a viral illness but a strep test was ordered just to rule out strep. The strep test did come back negative. Patient was encouraged fluids Tylenol and follow-up with Dr. Herrera if getting worse. Patient is alert awake he ambulates from the waiting room to the triage room. He has no obvious shortness of breath. He denies any abdominal pain or other symptoms other than just feeling weak and tired. Patient was advised at great length return if getting worse stay well-hydrated. Use Tylenol for aches and pains also saying his low-grade nausea and he is going to be given a little Zofran by prescription. Results <Jennifer Uriarte - Last Filed: 11/25/24 07:28> Objective Laboratory: Laboratory Last Values Group A Strep Rapid Negative (Negative) 11/25/24 05:54 <Jaspreet Campos MD - Last Filed: 11/25/24 07:32> Objective Laboratory: Laboratory Last Values Group A Strep Rapid Negative (Negative) 11/25/24 05:54
[2024-11-25 07:41] VITALS: BP 115/74; PULSE 97; RESP 17; TEMP 36.9; O2SAT 98
== END 2024-11-25 07:41 | disposition home or self-care (01) ==
PROVIDERS: Emergency Medicine; Emergency Provider Emergency Medicine; PCP Family Medicine
DX: B34.9 Viral infection, unspecified (principal)
CPT/HCPCS: 87400; 87651; 87811; 96372; 99283; J1885; Q0162

== ENCOUNTER 2024-11-30 16:18 | Emergency (ER) | payer MEDICAID, SELFPAY ==
[2024-11-30 17:06] VITALS: BP 136/94; PULSE 74; RESP 20; TEMP 36.4; O2SAT 96; BMI 25.9
--- NOTE | 2024-11-30 17:07 | XR_ITS ---
Examination: CT abdomen and pelvis without contrast. Coronal 3-D reconstructions. Sagittal 2-D reconstructions. Date and time of exam:November 30, 2024 1731 hours Comparison November 05, 2024 INDICATIONS: Left flank pain today, history kidney stones. CTDI: vol (mGy): 8.31. DLP: (mGycm): 562. Technique: Axial images of the abdomen have been obtained, 3 mm slice thickness Intravenous contrast material has not been administered. Low dose protocols were performed. One or more of the following dose reduction techniques were used; automated exposure control, adjustment of the mA and/or KV according to patient size, use of iterative reconstruction technique. Findings: No focal liver or splenic lesions Absent gallbladder No pancreatic mass No adrenal mass Minimal left hydronephrosis secondary to 3 mm distal left ureteral calculus axial image 216 No bowel obstruction Normal appendix No diverticulitis Abundant stool in the rectum No prostatomegaly Contracted urinary bladder. IMPRESSION: Minimal left hydronephrosis secondary to 3 mm distal left ureteral calculus
--- NOTE | 2024-11-30 17:08 | PD.EDRME ---
Rapid Medical Screening Exam RME Arrival date/time: 11/30/24 16:18 34-year-old male presents to the emergency department today for complaints of left lower abdominal pain Chief Complaint: Abdominal Pain Time Seen by Provider: 11/30/24 19:48 Vital signs: Vital Signs Temperature 97.6 F 11/30/24 17:06 Pulse Rate 74 11/30/24 17:06 Respiratory Rate 20 11/30/24 17:06 Blood Pressure 136/94 H 11/30/24 17:06 Pulse Oximetry (%) 96 11/30/24 17:06 Oxygen Delivery Method Room Air 11/30/24 17:06
[2024-11-30] MEDS: ONDANSETRON ODT 4 MG TABRAP PO (17:18)
[2024-11-30] MEDS: KETOROLAC INJ 60 MG/2 ML VIAL 30 MG IM (17:18)
[2024-11-30 17:40] LABS: Basophils # (Auto) 0.1 Thou/mm3 (0.0-0.2); Basophils % (Auto) 1 % (0-2.5); Eosinophils # (Auto) 0.1 Thou/mm3 (0.0-0.5); Eosinophils % (Auto) 1 % (0-10); Hematocrit 39.3 % (41.0-53.0); Hemoglobin 13.9 g/dL (13.5-16.0); Immature Granulocytes % (Auto) 0 % (0-0); Immature Granulocytes Auto 0.03 Thou/mm3 (0.00-0.00); Lymphocytes # (Auto) 2.7 Thou/mm3 (1.0-4.8); Lymphocytes % (Auto) 32 % (10-50); Mean Corpuscular HGB Conc 35.4 g/dl (31.0-37.0); Mean Corpuscular Hemoglobin 29.2 pg (25.0-35.0); Mean Corpuscular Volume 83 fL (80-100); Monocytes # (Auto) 0.7 Thou/mm3 (0.0-0.8); Monocytes % (Auto) 8 % (0-12); Neutrophils # (Auto) 4.7 Thou/mm3 (1.8-7.7); Neutrophils % (Auto) 58 % (37-80); Nucleated Red Blood Cell % 0 /100 WBC (0); Platelet Count 376 Thou/mm3 (140-440); RDW Standard Deviation 38.9 fL (35.1-43.9); Red Blood Count 4.76 Miln/mm3 (4.50-5.90); White Blood Count 8.2 Thou/mm3 (3.8-10.6)
[2024-11-30 17:59] LABS: Alanine Aminotransferase 13 U/L (10-49); Albumin, Serum 4.5 gm/dL (3.5-5.0); Albumin/Globulin Ratio 1.6 (1.2-2.2); Alkaline Phosphatase 85 U/L (46-116); Anion Gap 11 (7-16); Aspartate Amino Transferase 22 U/L (0-34); BUN/Creatinine Ratio 11 Ratio (12-20); Bilirubin,Total 0.4 mg/dL (0.3-1.2); Blood Urea Nitrogen 13 mg/dL (9-23); Calcium 9.9 mg/dL (8.3-10.6); Calcium (Corrected) 9.9 mg/dL (8.5-10.1); Carbon Dioxide 24.2 mMol/L (20.0-31.0); Chloride 103 mMol/L (98-107); Creatinine (Component) 1.2 mg/dL (0.6-1.3); Estimated Creatinine Clearance 100.8 mL/min (>60); Globulin 2.8 gm/dL (2.3-3.5); Glucose 104 mg/dL (74-106); Lipase 33 U/L (12-53); Osmolality,Calculated 275 (275-295); Potassium 3.7 mMol/L (3.4-5.1); Sodium 138 mMol/L (136-145); Total Protein 7.3 gm/dL (5.7-8.2); eGFR > 60 See Note
--- NOTE | 2024-11-30 20:41 | PD.EDABDPN ---
ED Abdominal Pain RME/HPI General Chief Complaint: Abdominal Pain Stated complaint: Left side flank pain X 6 hours Time seen by provider: 11/30/24 19:48 Arrival date/time: 11/30/24 16:18 RME / HPI RME / HPI narrative: 11/30/24 16:18 34-year-old male presents to the emergency department today for complaints of left lower abdominal pain DR ÁLVAREZ MAIN ED EVALUATION: 34 y/o male presents to ED c/o left-sided flank pain, nausea, and vomiting x 6 hours. Patient tried Ibuprofen with little to no relief. Patient denies fever, chills or any other associated symptoms or aggravating factors. No modifying factors, no radiation, no migration. No other pain reported overall. No other concerns or complaints expressed at this time. Related Data Previous Rx's ?Medication ?Instructions ?Recorded oxycodone-acetaminophen 5 mg-325 1 tab PO Q6H PRN pain #10 tabs 03/01/22 mg tablet (Percocet) ibuprofen 800 mg tablet 800 mg PO TID PRN pain #30 tabs 03/09/22 ibuprofen 600 mg tablet 600 mg PO Q6H PRN pain #30 tabs 11/30/24 tamsulosin 0.4 mg capsule 0.4 mg PO QDAY #14 caps 11/30/24 Allergies Allergy/AdvReac Type Severity Reaction Status Date / Time Sulfa (Sulfonamide Allergy Severe Hives Verified 11/30/24 16:22 Antibiotics) Review of Systems Review of Systems Systems Reviewed: All systems reviewed, normal except as documented Past Medical History Surgical History SURGICAL: Positive Ear Surgery and Throat Surgery Social History SMOKING STATUS: Current every day smoker ED Exam Narrative Physical exam: GENERAL APPEARANCE: alert and oriented x 4, well-developed, well-nourished, no acute distress VITALS: All vitals were reviewed and the pulse ox is 96% on room air, which is normal according to my interpretation. HEENT: Normocephalic, atraumatic; pupils equal, round, reactive to light; EOMI; mucous membranes pink, moist; oropharynx clear NECK: Supple LUNGS: CTABL; no wheezes, no rales, no rhonchi HEART: Regular rate, regular rhythm; normal S1, S2; no murmurs ABDOMEN: non distended; normal BS; soft, no tenderness, no guarding, no rebound; no masses, no organomegaly, no hernia BACK: no CVA tenderness EXTREMITIES: atraumatic; no edema NEUROLOGIC: awake; alert and oriented x4; cranial nerves II-XII grossly intact; no focal sensory or motor deficits PSYCHIATRIC: appropriate mood and affect SKIN: warm, dry, normal color; no rashes Course Quality Measures none Orders Category Date Time Status CT abdomen pelvis wo con Stat Exams 11/30/24 17:07 Completed CBC Stat Lab 11/30/24 17:23 Completed Comprehensive Metabolic Panel Stat Lab 11/30/24 17:23 Completed Lipase Stat Lab 11/30/24 17:23 Completed UA, C/S IF [Urinalysis, C/S if Indicated] Stat Lab 11/30/24 20:43 Completed Ketorolac Inj [Toradol Inj] Med 11/30/24 17:07 Discontinued 30 mg IM X1 ONE Ondansetron Odt [Zofran Odt] Med 11/30/24 17:07 Discontinued 4 mg PO X1 ONE Tamsulosin HCl [Flomax] Med 11/30/24 21:53 Discontinued 0.4 mg PO X1 ONE Vital Signs Vital signs: Vital Signs Temperature 97.6 F 11/30/24 17:06 Pulse Rate 74 11/30/24 17:06 Respiratory Rate 20 11/30/24 17:06 Blood Pressure 136/94 H 11/30/24 17:06 Pulse Oximetry (%) 96 11/30/24 17:06 Oxygen Delivery Method Room Air 11/30/24 17:06 Abdominal Pain MDM MDM Narrative MDM Narrative:: Scribe Attestation: Nathalie Richardson am scribing for and in the presence of Dr. Álvarez. Provider Notation: Although this document has been carefully reviewed, there may still be some phonetic and other typographical errors.? These errors are purely grammatical due to imperfections in the software program and should not be construed in any way to? compromise the substance of the patient's medical care during this visit. Patient data External records reviewed:: [facility] previous records (Reviewed prior ED records from 11/25/24. Patient was seen for Viral illness.) Clinical information provided by:: patient Social determinants that could affect healthcare access:: none Patient has the following chronic illnesses:: None reported How is presenting disease/condition affected by chronic disease/condition?: no chronic disease Evaluation data The following diagnostics were reviewed and interpreted by me:: lab results and radiology exam(s) Lab and/or radiology exams considered but not ordered:: None Interpretation Summary: RADIOLOGY Abdomen/Pelvis CT: Patient: CHELLY CHAN Record#: [id number] Birthdate: 1990 Age/Sex: 34 / M Location: [facility] Attending Dr: Ordering Physician: Lorenzo SUERO),Skyler REN Date of Service: 11/30/24 Procedure(s): CT abdomen pelvis wo con Accession Number(s): [id number] cc: Lorenzo SUERO),Skyler REN; Temo Miramontes MD; Tanner Ferreira MD~ Examination: CT abdomen and pelvis without contrast. Coronal 3-D reconstructions. Sagittal 2-D reconstructions. Date and time of exam:November 30, 2024 1731 hours Comparison November 05, 2024 INDICATIONS: Left flank pain today, history kidney stones. CTDI: vol (mGy): 8.31. DLP: (mGycm): 562. Technique: Axial images of the abdomen have been obtained, 3 mm slice thickness Intravenous contrast material has not been administered. Low dose protocols were performed. One or more of the following dose reduction techniques were used; automated exposure control, adjustment of the mA and/or KV according to patient size, use of iterative reconstruction technique. Findings: No focal liver or splenic lesions Absent gallbladder No pancreatic mass No adrenal mass Minimal left hydronephrosis secondary to 3 mm distal left ureteral calculus axial image 216 No bowel obstruction Normal appendix No diverticulitis Abundant stool in the rectum No prostatomegaly Contracted urinary bladder. IMPRESSION: Minimal left hydronephrosis secondary to 3 mm distal left ureteral calculus Dictated By: Temo Miramontes MD Signed By: <Electronically signed by Temo Miramontes MD in OV> 11/30/24 1903 Medications / Prescriptions Medications or Prescriptions considered but not ordered:: None Medication administrations:: Medication Administration History Discontinued Medications Ketorolac Tromethamine (Ketorolac Inj 60 Mg/2 Ml Vial) 30 mg IM X1 ONE Stop: 11/30/24 17:08 Last Admin: 11/30/24 17:18 Dose: 30 mg Documented By: CASSIE Ondansetron HCl (Ondansetron Odt 4 Mg Tabrap) 4 mg PO X1 ONE; Protocol Stop: 11/30/24 17:08 Last Admin: 11/30/24 17:18 Dose: 4 mg Documented By: CASSIE Tamsulosin HCl (Tamsulosin Hcl 0.4 Mg Capsule) 0.4 mg PO X1 ONE Stop: 11/30/24 21:54 See above Consultations Consultation(s) initiated? (list below): No Diagnosis Differential diagnosis abdominal pain: abdominal pain, calculus of kidney, gastroenteritis and pancreatitis Most likely diagnosis given after review of the tests above:: Left ureteral stone Admission Indicated Admission indicated?: not indicated Explain why admission is indicated or not indicated:: Patient does not meet admission criteria. Admission Request Was there a request for admission?: No Disposition Plan Disposition Plan: Discharge Discharge Attestation Discharge Attestation: The patient and all family members were given an opportunity to ask questions and understood the discharge instructions. Discharge instructions specifically effects, indications for sooner follow up or return to the emergency department, and the expected course of current diagnosis. Patient condition: Stable Discharge Plan Plan Patient Disposition: HOME (Self Care) Prescriptions/Referrals Prescriptions/Med Rec: New ibuprofen 600 mg tablet 600 mg PO Q6H PRN (Reason: pain) Qty: 30 0RF tamsulosin 0.4 mg capsule 0.4 mg PO QDAY Qty: 14 0RF No Action ibuprofen 800 mg tablet 800 mg PO TID PRN (Reason: pain) Qty: 30 0RF oxycodone-acetaminophen [Percocet] 5-325 mg tablet 1 tab PO Q6H MDD 4 tabs PRN (Reason: pain) Qty: 10 0RF Referrals: Tanner Ferreira MD [Primary Care Provider] - In 1 week Problem List Clinical Impression: Left ureteral stone Patient/Caregiver Discharge Instructions Education Materials: ED Kidney Stone w/ Colic Print Language: Japanese Stand Alone Forms: Sonia Award Info., Patient Portal Info Letter
[2024-11-30 21:12] LABS: Collection Type, Urine Clean Catch; RBC,Urine 0 /hpf (0-3); Squamous Epithelial Cell,Urine 0 /hpf (0-5); WBC,Urine 0 /hpf (0-5)
[2024-11-30 21:30] LABS: Bilirubin,Urine Negative (Negative); Blood,Urine Negative (Negative); Clarity,Urine Clear (Clear/Hazy); Color,Urine Yellow (Lt Yel-Yel); Culture Indicated,Urine Not Indicated; Glucose, Urine Negative (Negative); Ketones,Urine 2+ (Negative); Leukocyte Esterase,Urine Negative (Negative); Nitrite,Urine Negative (Negative); Protein,Urine 2+ (Neg - Trace)
[2024-11-30 21:37] LABS: Specific Gravity,Urine > 1.035 (1.001-1.035)
[2024-11-30] MEDS: TAMSULOSIN HCL 0.4 MG CAPSULE PO (22:14)
== END 2024-11-30 22:15 | disposition home or self-care (01) ==
PROVIDERS: Nurse Practitioner Primary Care; Emergency Provider Emergency Medicine; PCP Family Medicine
DX: N13.2 Hydronephrosis with renal and ureteral calculous obstruction (principal)
CPT/HCPCS: 36415; 74176; 80053; 81001; 83690; 85025; 96372; 99284; J1885; Q0162; A9270

== ENCOUNTER 2024-12-08 20:50 | Emergency (ER) | payer MEDICAID, SELFPAY ==
[2024-12-08 20:51] VITALS: BMI 27.1
[2024-12-08 21:00] VITALS: BP 143/96; PULSE 82; RESP 16; TEMP 36.6; O2SAT 98
--- NOTE | 2024-12-08 21:07 | XR_ITS ---
Examination: CT abdomen and pelvis without contrast. Coronal 3-D reconstructions. Sagittal 2-D reconstructions. Date and time of exam:December 08, 2024 1009 hours Comparison November 30, 2024 INDICATIONS: Left flank pain, history 3 mm distal left ureteral calculus on November 30, 2024 CTDI: vol (mGy): 8 DLP: (mGycm): 587 Technique: Axial images of the abdomen have been obtained, 3 mm slice thickness Intravenous contrast material has not been administered. Low dose protocols were performed. One or more of the following dose reduction techniques were used; automated exposure control, adjustment of the mA and/or KV according to patient size, use of iterative reconstruction technique. Findings: No focal liver or splenic lesions Absent gallbladder No pancreatic or adrenal mass Mild left hydronephrosis, 4 mm distal left ureterovesical junction calculus No bowel obstruction Normal appendix No diverticulitis No prostatomegaly IMPRESSION: Mild left hydronephrosis, 4 mm distal left ureterovesical junction calculus
--- NOTE | 2024-12-08 21:07 | PD.EDABDPN ---
ED Abdominal Pain RME/HPI General Chief Complaint: Abdominal Pain Stated complaint: LEFT FLANK PAIN Time seen by provider: 12/08/24 21:06 Arrival date/time: 12/08/24 20:50 RME / HPI RME / HPI narrative: This section includes all my notes and documentations, including HPI, PE, and ED course. Lloyd Powell MD HPI: 34 y/o male with recent Hx of Kidney Stone presents with left flank pain. Patient was seen in ED approximately 1 week ago and diagnosed with a 3 mm kidney stone that still has not passed. Patient is taking Ibuprofen with no relief and sometimes vomiting due to the pain. No other complaints. ROS: All negative except as documented in HPI. Physical Exam: General: Alert and oriented. In pain. Eyes: Conjunctivae and lids clear. ENT: No nasal congestion. Neck: Supple. Heart: RRR. Lungs: No respiratory distress. Good air movement. No rhonchi, wheezing, rales. Abdomen: Soft and nontender. Normal bowel sounds. No distension. No rebound or guarding. Back: Equivical left-sided CVA tenderness. Skin: Warm and dry. Neuro: Alert and oriented X 3. I reviewed all diagnostic test results: My interpretation of the EKG is NSR (76 bpm) with no ST-T changes. My review of the Abdomen/Pelvis CT report is: mild left hydronephrosis, 4 mm distal left ureterovesical junction calculus. Blood tests and urine tests are unremarkable. At this point, diagnoses include: left kidney stone. Treatment here included: Toradol 30 mg, Zofran 4 mg, NS, Flomax. Significant improvement noted. Urine strainer dispensed. Recommended outpatient management. Based on my best medical judgment, made decision no further evaluation or treatment indicated at this time. Patient understands and agrees to the discharge instructions customized and printed, see below. Discharge Instructions from Dr. Powell: --Your symptoms are due to a 4 mm right kidney stone. It is outside the kidney. It is trying to pass into your bladder. --Increase oral fluid to flush your kidneys. Maintain clear urine. if it's dark or yellow then increase oral fluid. If you don't do this, you won't pass it. --Take Flomax to help decrease spasms to increase the chance of passing it. --Take Zofran as needed for nausea or vomiting. --Take Ketorolac/Toradol for pain control. And Tylenol with Codeine. If you are in severe pain, you won't pass it. --Strain your urine so you can catch the stone when you pass it. --See a private doctor on 12/12/2024 for recheck. Take the stone with you for analysis because certain stones can be prevented. If you didn't pass it, ask for referral to see urologist. Who will take the stone out for you. --Seek immediate medical care with fever over 100.4, persistent vomiting despite Zofran, intolerable pain, or with any concerns. Lloyd Powell MD Related Data Previous Rx's ?Medication ?Instructions ?Recorded oxycodone-acetaminophen 5 mg-325 1 tab PO Q6H PRN pain #10 tabs 03/01/22 mg tablet (Percocet) ibuprofen 800 mg tablet 800 mg PO TID PRN pain #30 tabs 03/09/22 ibuprofen 600 mg tablet 600 mg PO Q6H PRN pain #30 tabs 11/30/24 tamsulosin 0.4 mg capsule 0.4 mg PO QDAY #14 caps 11/30/24 acetaminophen 300 mg-codeine 30 mg 2 tab PO Q8H PRN pain #20 tabs 12/08/24 tablet ketorolac 10 mg tablet 10 mg PO Q8H PRN pain 5 days #10 12/08/24 tabs ondansetron 4 mg disintegrating 4 mg PO TID PRN nausea and 12/08/24 tablet vomiting 30 days #10 tabs tamsulosin 0.4 mg capsule (Flomax) 0.4 mg PO QDAY 7 days #7 caps 12/08/24 Allergies Allergy/AdvReac Type Severity Reaction Status Date / Time Sulfa (Sulfonamide Allergy Severe Hives Verified 11/30/24 16:22 Antibiotics) Review of Systems Review of Systems Systems Reviewed: All systems reviewed, normal except as documented Past Medical History Past Medical History GENITOURINARY: Positive Kidney Stones Surgical History SURGICAL: Positive Ear Surgery and Throat Surgery Social History SMOKING STATUS: Current every day smoker ED Exam Narrative Physical exam: Refer to HPI Course Quality Measures none Orders Category Date Time Status EKG (ED ONLY) *Do not use* NOW Care 12/08/24 21:13 Completed Miscellaneous Nursing Order NOW Care 12/08/24 23:06 Completed Saline [Insert IV] NOW Care 12/08/24 21:[address] abdomen pelvis wo con Stat Exams 12/08/24 21:07 Completed EKG (ED Only) Stat Exams 12/08/24 21:12 Draft Bilirubin,Direct Stat Lab 12/08/24 21:30 Completed CBC Stat Lab 12/08/24 21:30 Completed CMP [Comprehensive Metabolic Panel] Stat Lab 12/08/24 21:30 Completed Magnesium Stat Lab 12/08/24 21:30 Completed UA, C/S IF [Urinalysis, C/S if Indicated] Stat Lab 12/08/24 21:13 Completed Ketorolac Inj [Toradol Inj] Med 12/08/24 21:07 Discontinued 30 mg IVP X1 ONE Ondansetron Inj [Zofran Inj] Med 12/08/24 21:07 Discontinued 4 mg IVP X1 ONE Sodium Chloride 0.9% 1000 ml [Ns] 1,000 ml Med 12/08/24 21:07 Discontinued IV 999 mls/hr Tamsulosin HCl [Flomax] Med 12/08/24 23:07 Discontinued 0.4 mg PO X1 ONE Vital Signs Vital signs: Vital Signs Temperature 97.9 F 12/08/24 21:00 Pulse Rate 82 12/08/24 21:00 Respiratory Rate 16 12/08/24 21:00 Blood Pressure 143/96 H 12/08/24 21:00 Pulse Oximetry (%) 98 12/08/24 21:00 Oxygen Delivery Method Room Air 12/08/24 21:00 Abdominal Pain MDM MDM Narrative MDM Narrative:: Scribe Attestation: Nathalie Richardson am scribing for and in the presence of Dr. Powell. Provider Notation: Although this document has been carefully reviewed, there may still be some phonetic and other typographical errors.? These errors are purely grammatical due to imperfections in the software program and should not be construed in any way to? compromise the substance of the patient's medical care during this visit. Patient data External records reviewed:: [facility] previous records (Reviewed prior ED records from 11/30/24. Patient was seen for Left ureteral stone.) Clinical information provided by:: patient Social determinants that could affect healthcare access:: none Patient has the following chronic illnesses:: Kidney Stone How is presenting disease/condition affected by chronic disease/condition?: exacerbated by Evaluation data The following diagnostics were reviewed and interpreted by me:: lab results, radiology exam(s) and EKG tracing(s) (My interpretation of the EKG is NSR (76 bpm) with no ST-T changes. Lloyd Powell MD) Lab and/or radiology exams considered but not ordered:: None Interpretation Summary: My interpretation of the EKG is NSR (76 bpm) with no ST-T changes. My review of the Abdomen/Pelvis CT report is: mild left hydronephrosis, 4 mm distal left ureterovesical junction calculus. Blood tests and urine tests are unremarkable. Medications / Prescriptions Medications or Prescriptions considered but not ordered:: None Medication administrations:: Medication Administration History Discontinued Medications Sodium Chloride (Ns) 1,000 mls @ 999 mls/hr IV .Q1H1M ONE Stop: 12/08/24 22:07 Last Infusion: 12/08/24 22:59 Dose: Infused Documented By: Admin: 12/08/24 21:40 Dose: 999 mls/hr Documented By: JIMMY Ketorolac Tromethamine (Ketorolac Inj 30 Mg/Ml Vial) 30 mg IVP X1 ONE Stop: 12/08/24 21:08 Last Admin: 12/08/24 21:43 Dose: 30 mg Documented By: JIMMY Ondansetron HCl (Ondansetron Inj 2 Mg/Ml Inj 2 Ml) 4 mg IVP X1 ONE; Protocol Stop: 12/08/24 21:08 Last Admin: 12/08/24 21:42 Dose: 4 mg Documented By: JIMMY Tamsulosin HCl (Tamsulosin Hcl 0.4 Mg Capsule) 0.4 mg PO X1 ONE Stop: 12/08/24 23:08 Last Admin: 12/08/24 23:15 Dose: 0.4 mg Documented By: JIMMY Toradol 30 mg, Zofran 4 mg, IVF Consultations Consultation(s) initiated? (list below): No Diagnosis Differential diagnosis abdominal pain: abdominal pain, calculus of kidney, small bowel obstruction and other (Pyelonephritis) Most likely diagnosis given after review of the tests above:: Kidney stone on the left side Admission Indicated Admission indicated?: not indicated Explain why admission is indicated or not indicated:: With significant improvement and no condition needing emergent intervention, there was no indication for admission. Admission Request Was there a request for admission?: No Disposition Plan Disposition Plan: Discharge Discharge Attestation Discharge Attestation: The patient and all family members were given an opportunity to ask questions and understood the discharge instructions. Discharge instructions specifically effects, indications for sooner follow up or return to the emergency department, and the expected course of current diagnosis. Patient condition: Stable Discharge Plan Plan Patient Disposition: HOME (Self Care) Prescriptions/Referrals Prescriptions/Med Rec: New acetaminophen-codeine 300-30 mg tablet 2 tab PO Q8H MDD 6 PRN (Reason: pain) Qty: 20 0RF ketorolac 10 mg tablet 10 mg PO Q8H PRN (Reason: pain) 5 Days Qty: 10 0RF tamsulosin [Flomax] 0.4 mg capsule 0.4 mg PO QDAY 7 Days Qty: 7 0RF ondansetron 4 mg tablet,disintegrating 4 mg PO TID PRN (Reason: nausea and vomiting) 30 Days Qty: 10 0RF No Action ibuprofen 800 mg tablet 800 mg PO TID PRN (Reason: pain) Qty: 30 0RF oxycodone-acetaminophen [Percocet] 5-325 mg tablet 1 tab PO Q6H MDD 4 tabs PRN (Reason: pain) Qty: 10 0RF ibuprofen 600 mg tablet 600 mg PO Q6H PRN (Reason: pain) Qty: 30 0RF tamsulosin 0.4 mg capsule 0.4 mg PO QDAY Qty: 14 0RF Referrals: No Primary/Family,Physician [Primary Care Provider] - In 1 week Problem List Clinical Impression: Kidney stone on left side Patient/Caregiver Discharge Instructions Discharge Activity: activity as tolerated Education Materials: ED Kidney Stone w/ Colic Additional Instructions: Discharge Instructions from Dr. Powell: --Your symptoms are due to a 4 mm right kidney stone.? It is outside the kidney.? It is trying to pass into your bladder.? --Increase oral fluid to flush your kidneys.? Maintain clear urine. if it's dark or yellow then increase oral fluid.? If you don't do this, you won't pass it.? --Take Flomax to help decrease spasms to increase the chance of passing it.? --Take Zofran as needed for nausea or vomiting. --Take Ketorolac/Toradol for pain control.? And Tylenol with Codeine.? If you are in severe pain, you won't pass it.?? --Strain your urine so you can catch the stone when you pass it.? --See a private doctor on 12/12/2024 for recheck. Take the stone with you for analysis because certain stones can be prevented.? If you didn't pass it, ask for referral to see urologist.? Who will take the stone out for you. --Seek immediate medical care with fever over 100.4, persistent vomiting despite Zofran, intolerable pain, or with any concerns.?? Print Language: Tajik Stand Alone Forms: Sonia Award Info., Patient Portal Info Letter
--- NOTE | 2024-12-08 21:12 | EKG_ITS ---
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
[2024-12-08 21:22] LABS: Collection Type, Urine Clean Catch; Squamous Epithelial Cell,Urine 0 /hpf (0-5)
[2024-12-08 21:35] LABS: Bilirubin,Urine Negative (Negative); Blood,Urine 2+ (Negative); Clarity,Urine Clear (Clear/Hazy); Color,Urine Lt-Yellow (Lt Yel-Yel); Culture Indicated,Urine Not Indicated; Glucose, Urine Negative (Negative); Ketones,Urine Negative (Negative); Leukocyte Esterase,Urine Negative (Negative); Nitrite,Urine Negative (Negative); PH,Urine 6.5 (5.0-7.0); Protein,Urine Negative (Neg - Trace); RBC,Urine 3 /hpf (0-3); Specific Gravity,Urine 1.020 (1.001-1.035); Urobilinogen,Urine Negative mg/dL (0.0-1.0); WBC,Urine 1 /hpf (0-5)
[2024-12-08] MEDS: SODIUM CHLORIDE 0.9% 1000 ML 1,000 ML 999 ML IV (21:40)
[2024-12-08] MEDS: ONDANSETRON INJ 2 MG/ML INJ 2 ML 4 MG IVP (21:42)
[2024-12-08] MEDS: KETOROLAC INJ 30 MG/ML VIAL IVP (21:43)
[2024-12-08 22:01] LABS: Basophils # (Auto) 0.0 Thou/mm3 (0.0-0.2); Basophils % (Auto) 0 % (0-2.5); Eosinophils # (Auto) 0.1 Thou/mm3 (0.0-0.5); Eosinophils % (Auto) 1 % (0-10); Hematocrit 35.7 % (41.0-53.0); Hemoglobin 12.4 g/dL (13.5-16.0); Immature Granulocytes Auto 0.03 Thou/mm3 (0.00-0.00); Lymphocytes # (Auto) 2.8 Thou/mm3 (1.0-4.8); Lymphocytes % (Auto) 26 % (10-50); Mean Corpuscular HGB Conc 34.7 g/dl (31.0-37.0); Mean Corpuscular Hemoglobin 29.5 pg (25.0-35.0); Mean Corpuscular Volume 85 fL (80-100); Monocytes # (Auto) 1.0 Thou/mm3 (0.0-0.8); Monocytes % (Auto) 9 % (0-12); Neutrophils # (Auto) 6.9 Thou/mm3 (1.8-7.7); Neutrophils % (Auto) 63 % (37-80); Nucleated Red Blood Cell # 0.00 Thou/mm3 (0.00-0.00); Nucleated Red Blood Cell % 0 /100 WBC (0); Platelet Count 437 Thou/mm3 (140-440); RDW Standard Deviation 40.9 fL (35.1-43.9); Red Blood Count 4.20 Miln/mm3 (4.50-5.90); White Blood Count 10.9 Thou/mm3 (3.8-10.6)
[2024-12-08 22:31] LABS: Anion Gap 9 (7-16); BUN/Creatinine Ratio 12 Ratio (12-20); Bilirubin,Direct < 0.1 mg/dL (0.0-0.3); Bilirubin,Total 0.3 mg/dL (0.3-1.2); Blood Urea Nitrogen 14 mg/dL (9-23); Calcium 9.1 mg/dL (8.3-10.6); Carbon Dioxide 26.8 mMol/L (20.0-31.0); Chloride 109 mMol/L (98-107); Creatinine (Component) 1.2 mg/dL (0.6-1.3); Estimated Creatinine Clearance 95.2 mL/min (>60); Glucose 100 mg/dL (74-106); Magnesium 1.8 mg/dL (1.6-2.6); Osmolality,Calculated 289 (275-295); Potassium 3.4 mMol/L (3.4-5.1); Sodium 145 mMol/L (136-145); eGFR > 60 See Note
[2024-12-08 22:32] LABS: Alanine Aminotransferase 11 U/L (10-49); Albumin, Serum 3.9 gm/dL (3.5-5.0); Albumin/Globulin Ratio 1.4 (1.2-2.2); Alkaline Phosphatase 92 U/L (46-116); Aspartate Amino Transferase 14 U/L (0-34); Calcium (Corrected) 9.2 mg/dL (8.5-10.1); Globulin 2.7 gm/dL (2.3-3.5); Total Protein 6.6 gm/dL (5.7-8.2)
[2024-12-08] MEDS: TAMSULOSIN HCL 0.4 MG CAPSULE PO (23:15)
[2024-12-08 23:16] VITALS: BP 152/101; PULSE 76; RESP 18; O2SAT 98
== END 2024-12-08 23:17 | disposition home or self-care (01) ==
PROVIDERS: Emergency Provider Emergency Medicine
DX: N13.2 Hydronephrosis with renal and ureteral calculous obstruction (principal)
CPT/HCPCS: 36415; 74176; 80053; 81001; 82248; 83735; 85025; 96361; 96374; 96375; 99284; J1885; J2405; J7030; A9270

== ENCOUNTER 2024-12-11 11:55 | Emergency (ER) | payer MEDICAID, SELFPAY ==
[2024-12-11 12:14] VITALS: BMI 27.6
[2024-12-11 12:16] VITALS: BP 123/73; PULSE 103; RESP 18; TEMP 36.6; O2SAT 98
--- NOTE | 2024-12-11 12:39 | PD.EDRME ---
Rapid Medical Screening Exam E Arrival date/time: 12/11/24 11:55 This is a 34-year-old male that comes into the emergency room with complaints of nausea, vomiting, abdominal pain. Patient states he is vomiting blood. Patient states his vomit looked mostly like bile but now is just blood. Patient recently was in the hospital for kidney stones. I have greeted and performed a focused initial assessment of this patient. Initial appropriate labs ordered at this time. A comprehensive ED assessment and evaluation of the patient and analysis of all test and completion of medical decision making process will be conducted by additional ED provider. Chief Complaint: Nausea/Vomiting/Diarrhea Time Seen by Provider: 12/11/24 12:23 Vital signs: Vital Signs Temperature 97.9 F 12/11/24 12:16 Pulse Rate 103 H 12/11/24 12:16 Respiratory Rate 18 12/11/24 12:16 Blood Pressure 123/73 12/11/24 12:16 Pulse Oximetry (%) 98 12/11/24 12:16 Oxygen Delivery Method Room Air 12/11/24 12:16
[2024-12-11] MEDS: ONDANSETRON ODT 4 MG TABRAP PO (12:50)
--- NOTE | 2024-12-11 13:07 | EDNOTE_ITS ---
Nausea/Vomit./Diarrhea-RME/HPI General Chief complaint: Nausea/Vomiting/Diarrhea Stated complaint: VOMITING BLOOD Time Seen by Provider: 12/11/24 12:23 Arrival date/time: 12/11/24 11:55 Limitations: no limitations RME / HPI RME / HPI Narrative: 12/11/24 11:55 This is a 34-year-old male that comes into the emergency room with complaints of nausea, vomiting, abdominal pain. Patient states he is vomiting blood. Patient states his vomit looked mostly like bile but now is just blood. Patient recently was in the hospital for kidney stones. I have greeted and performed a focused initial assessment of this patient. Initial appropriate labs ordered at this time. A comprehensive ED assessment and evaluation of the patient and analysis of all test and completion of medical decision making process will be conducted by additional ED provider. Patient was discharged yesterday from [facility], diagnosed with a 4 mm nonobstructive stone, discharged home with acetaminophen with codeine and Flomax, as well as Zofran. Patient took the first dose of Tylenol with codeine yesterday and woke up this morning in pain and vomiting. After several times of retching, the emesis was blood-tinged. Does not have any liver issues. Is status post cholecystectomy with stent to the common bile duct. MD complaint: nausea and vomiting Onset (ago): hour(s) (6) Description of Vomiting: blood-streaked Associated Abdominal Pain: Yes Quality: sharp Consistency: intermittent Related Data Previous Rx's ?Medication ?Instructions ?Recorded oxycodone-acetaminophen 5 mg-325 1 tab PO Q6H PRN pain #10 tabs 03/01/22 mg tablet (Percocet) ibuprofen 800 mg tablet 800 mg PO TID PRN pain #30 t abs 03/09/22 ibuprofen 600 mg tablet 600 mg PO Q6H PRN pain #30 t abs 11/30/24 tamsulosin 0.4 mg capsule 0.4 mg PO QDAY #14 caps 11/07 10/30 acetaminophen 300 mg-codeine 30 mg 2 tab PO Q8H PRN pa in #20 tabs 12/08/24 tablet ketorolac 10 mg tablet 10 mg PO Q8H PRN pain 5 days #10 12/08/24 tabs ondansetron 4 mg disintegrating 4 mg PO TID PRN nausea and 12/08/24 tablet vomiting 30 days #10 tabs tamsulosin 0.4 mg capsule (Flomax) 0.4 mg PO QDAY 7 da ys #7 caps 12/08/24 Allergies Allergy/AdvReac Type Severity Reaction Status Date / Time Sulfa (Sulfonamide Allergy Severe Hives Verified 12/11/24 11:58 Antibiotics) Review of Systems Review of Systems Systems Reviewed: All systems reviewed, normal except as documented Past Medical History Past Medical History NEUROLOGIC: Negative Neurological Disorders CARDIAC: Negative Cardiac Disorders GASTROINTESTINAL: Negative Gastrointestinal Disorders GENITOURINARY: Positive Kidney Stones; Negative Genitourinary Disorders or Renal Disease MUSCULOSKELETAL: Negative Musculoskeletal Disorders ENDOCRINE: Negative Endocrine Disorders Surgical History SURGICAL: Positive Ear Surgery and Throat Surgery; Negative Abdominal Surgery, Joint Replacement or Neurologic Surgery Social History SMOKING STATUS: Current every day smoker SECOND HAND EXPOSURE: No ED Exam General Limitations: Present no limitations General appearance: Present alert and in no apparent distress Head Head exam: Present atraumatic and normocephalic Eye Eye exam: Present normal appearance and PERRL ENT ENT exam: Present normal exam Neck Neck exam: Present normal inspection Chest Chest inspection: Present normal inspection Respiratory Respiratory exam: Present normal lung sounds bilaterally; Absent respiratory distress, wheezes or stridor Cardiovascular Cardiovascular exam: Present regular rate, normal rhythm and normal heart sounds Abdominal Exam Abdominal exam: Present soft and normal bowel sounds; Absent distention, tenderness, guarding, rebound or organomegaly Rectal Exam Rectal exam: Present deferred Extremities Exam Extremities exam: Present normal inspection Back Exam Back exam: Present normal inspection Neurological Exam Neurological exam: Present alert, oriented X3, CN II-XII intact and normal gait Psychiatric Psychiatric exam: Present normal affect and normal mood Skin Skin exam: Present warm and dry; Absent rash Course Quality Measures none Orders Category Date Time Status CT abdomen pelvis wo con Stat Exams 12/11/24 13:06 Completed CBC Stat Lab 12/11/24 13:08 Completed Comprehensive Metabolic Panel Stat Lab 12/11/24 13:08 Completed Drug Screen,Urine Stat Lab 12/11/24 13:19 Completed Lipase Stat Lab 12/11/24 13:08 Completed PT [Prothrombin Time with INR] Stat Lab 12/11/24 13:08 Completed Type and Screen Stat Lab 12/11/24 13:08 Received Urinalysis, C/S if Indicated Stat Lab 12/11/24 13:19 Completed Ketorolac Inj [Toradol Inj] Med 12/11/24 13:06 Discontinued 30 mg IVP X1 ONE Magnesium Citrate Liqd [Citrate of Magnesia Liqd] Med 12/11/24 14:53 Discontinued 300 ml PO X1 ONE Metoclopramide Inj [Reglan Inj] Med 12/11/24 13:06 Discontinued 10 mg IVP X1 ONE Ondansetron Odt [Zofran Odt] Med 12/11/24 12:39 Discontinued 4 mg PO X1 ONE Reevaluation(s) Reevaluation #1: Patient reports he is pain and nausea free at this time. There is no evidence of small bowel obstruction. Will give dose of mag citrate before discharge. Time: 14:52 Vital Signs Vital signs: Vital Signs Temperature 97.9 F 12/11/24 12:16 Pulse Rate 103 H 12/11/24 12:16 Respiratory Rate 18 12/11/24 12:16 Blood Pressure 123/73 12/11/24 12:16 Pulse Oximetry (%) 98 12/11/24 12:16 Oxygen Delivery Method Room Air 12/11/24 12:16 Pulse ox is 98% on room air which is adequate. Nausea/Vomiting/Diarrhea Patient data External records reviewed:: [facility] previous records (I reviewed ED visit on 12/08/2024 and diagnosed with kidney infection ) Clinical information provided by:: patient Social determinants that could affect healthcare access:: none Patient has the following chronic illnesses:: No chronic medical hx reported How is presenting disease/condition affected by chronic disease/condition?: no chronic disease Evaluation data The following diagnostics were reviewed and interpreted by me:: lab results and radiology exam(s) Lab and/or radiology exams considered but not ordered:: None Interpretation Summary: Ordering Physician: Chicho George MD Date of Service: 12/11/24 Procedure(s): CT abdomen pelvis wo con Accession Number(s): [id number] cc: Chicho George MD; Temo Miramontes MD~ Examination: CT abdomen and pelvis without contrast. Coronal 3-D reconstructions. Sagittal 2-D reconstructions. Date and time of exam:December 11, 2024, 1319 hrs. Comparison December 08, 2024 Indications: Generalized abdominal pain with nausea today, history mild left hydronephrosis 4 mm distal left ureterovesical junction calculus on CT stone study December 08, 2024 CTDI: vol (mGy): 7.9. DLP: (mGycm): 500. Technique: Axial images of the abdomen have been obtained, 3 mm slice thickness Intravenous contrast material has not been administered. Low dose protocols were performed. One or more of the following dose reduction techniques were used; automated exposure control, adjustment of the mA and/or KV according to patient size, use of iterative reconstruction technique. Findings: No focal liver or splenic lesions Absent gallbladder Interval fluid distended small bowel loops No pancreatic mass No current hydronephrosis The left ureteral calculus is no longer identified No prostatomegaly Normal appendix Contracted urinary bladder Impression: The distal left ureteral calculus is no longer identified Interval multiple fluid distended small bowel loops, consider early small bowel obstruction. Dictated By: Temo Miramontes MD Signed By: <Electronically signed by Temo Miramontes MD in OV> 12/11/24 1423 Medications / Prescriptions Medications / Prescriptions considered but not ordered:: None Medication administrations:: Medication Administration History Discontinued Medications Ketorolac Tromethamine (Ketorolac Inj 30 Mg/Ml Vial) 30 mg IVP X1 ONE Stop: 12/11/24 13:07 Last Admin: 12/11/24 13:37 Dose: 30 mg Documented By: DIANA Magnesium Citrate (Magnesium Citrate 300 Ml Btl) 300 ml PO X1 ONE Stop: 12/11/24 14:54 Metoclopramide HCl (Metoclopramide Inj 5 Mg/Ml Vial 2 Ml) 10 mg IVP X1 ONE; Protocol Stop: 12/11/24 13:07 Last Admin: 12/11/24 13:38 Dose: 10 mg Documented By: DIANA Ondansetron HCl (Ondansetron Odt 4 Mg Tabrap) 4 mg PO X1 ONE; Protocol Stop: 12/11/24 12:40 Last Admin: 12/11/24 12:50 Dose: 4 mg Documented By: FILI See above Consultations Consultation(s) initiated? (list below): No Diagnosis Nausea Differential Diagnosis: gastroenteritis, drug-induced nausea and vomiting and dehydration Most likely diagnosis given after review of the tests above:: Kidney stone Vicki-emanuel tear Admission Indicated Admission indicated?: not indicated Admission Request Was there a request for admission?: No Disposition Plan Disposition Plan: Discharge Discharge Attestation Discharge Attestation: The patient and all family members were given an opportunity to ask questions and understood the discharge instructions. Discharge instructions specifically effects, indications for sooner follow up or return to the emergency department, and the expected course of current diagnosis. Patient condition: Stable Discharge Plan Plan Patient Disposition: HOME (Self Care) Patient condition on transfer: Stable Prescriptions/Referrals Prescriptions/Med Rec: No Action ibuprofen 800 mg tablet 800 mg PO TID PRN (Reason: pain) Qty: 30 0RF acetaminophen-codeine 300-30 mg tablet 2 tab PO Q8H MDD 6 PRN (Reason: pain) Qty: 20 0RF ketorolac 10 mg tablet 10 mg PO Q8H PRN (Reason: pain) 5 Days Qty: 10 0RF tamsulosin [Flomax] 0.4 mg capsule 0.4 mg PO QDAY 7 Days Qty: 7 0RF ondansetron 4 mg tablet,disintegrating 4 mg PO TID PRN (Reason: nausea and vomiting) 30 Days Qty: 10 0RF oxycodone-acetaminophen [Percocet] 5-325 mg tablet 1 tab PO Q6H MDD 4 tabs PRN (Reason: pain) Qty: 10 0RF ibuprofen 600 mg tablet 600 mg PO Q6H PRN (Reason: pain) Qty: 30 0RF tamsulosin 0.4 mg capsule 0.4 mg PO QDAY Qty: 14 0RF Problem List Clinical Impression: Kidney stone, Vicki-Emanuel tear Patient/Caregiver Discharge Instructions Discharge Activity: as per physical therapy Education Materials: Vicki-Emanuel Tear, ED Kidney Stone, Passed Print Language: Irish Stand Alone Forms: Sonia Award Info., Patient Portal Info Letter
[2024-12-11 13:24] LABS: Collection Type, Urine Voided
--- NOTE | 2024-12-11 13:25 | PC.NURSE ---
Patient to er from [facility] and taken to 2 with c/o mid to lower abd. pain and vomiting blood since 0800 this am. Currently, patient lying in [place] que[place], skin is warm dry and pink, Dr. Wellington at bedside, new orders received.
[2024-12-11 13:27] LABS: Basophils # (Auto) 0.0 Thou/mm3 (0.0-0.2); Basophils % (Auto) 0 % (0-2.5); Eosinophils # (Auto) 0.1 Thou/mm3 (0.0-0.5); Eosinophils % (Auto) 0 % (0-10); Hematocrit 40.1 % (41.0-53.0); Hemoglobin 13.9 g/dL (13.5-16.0); Immature Granulocytes Auto 0.04 Thou/mm3 (0.00-0.00); Lymphocytes # (Auto) 1.3 Thou/mm3 (1.0-4.8); Lymphocytes % (Auto) 10 % (10-50); Mean Corpuscular HGB Conc 34.7 g/dl (31.0-37.0); Mean Corpuscular Hemoglobin 29.1 pg (25.0-35.0); Mean Corpuscular Volume 84 fL (80-100); Monocytes # (Auto) 0.9 Thou/mm3 (0.0-0.8); Monocytes % (Auto) 6 % (0-12); Neutrophils # (Auto) 11.2 Thou/mm3 (1.8-7.7); Neutrophils % (Auto) 83 % (37-80); Nucleated Red Blood Cell # 0.00 Thou/mm3 (0.00-0.00); Nucleated Red Blood Cell % 0 /100 WBC (0); Platelet Count 525 Thou/mm3 (140-440); RDW Standard Deviation 40.6 fL (35.1-43.9); Red Blood Count 4.77 Miln/mm3 (4.50-5.90); White Blood Count 13.5 Thou/mm3 (3.8-10.6)
[2024-12-11 13:31] LABS: Bilirubin,Urine Negative (Negative); Blood,Urine Negative (Negative); Clarity,Urine Clear (Clear/Hazy); Color,Urine Yellow (Lt Yel-Yel); Culture Indicated,Urine Not Indicated; Glucose, Urine Negative (Negative); Hyaline Casts,Urine < 1 /hpf (0-1); Ketones,Urine Negative (Negative); Leukocyte Esterase,Urine Positive (Negative); Nitrite,Urine Negative (Negative); PH,Urine 6.0 (5.0-7.0); Protein,Urine Trace (Neg - Trace); RBC,Urine 7 /hpf (0-3); Specific Gravity,Urine 1.024 (1.001-1.035); Squamous Epithelial Cell,Urine < 1 /hpf (0-5); Urobilinogen,Urine 2.0 mg/dL (0.0-1.0); WBC,Urine 9 /hpf (0-5)
[2024-12-11] MEDS: KETOROLAC INJ 30 MG/ML VIAL IVP (13:37)
[2024-12-11] MEDS: METOCLOPRAMIDE INJ 5 MG/ML VIAL 2 ML 10 MG IVP (13:38)
[2024-12-11 13:44] LABS: INR 1.1 (0.9-1.3); Prothrombin Time 11.5 Seconds (9.0-12.2)
[2024-12-11 13:54] LABS: Alanine Aminotransferase 14 U/L (10-49); Albumin, Serum 4.3 gm/dL (3.5-5.0); Albumin/Globulin Ratio 1.3 (1.2-2.2); Alkaline Phosphatase 93 U/L (46-116); Anion Gap 10 (7-16); Aspartate Amino Transferase 18 U/L (0-34); BUN/Creatinine Ratio 10 Ratio (12-20); Bilirubin,Total 0.5 mg/dL (0.3-1.2); Blood Urea Nitrogen 11 mg/dL (9-23); Calcium 9.4 mg/dL (8.3-10.6); Calcium (Corrected) 9.4 mg/dL (8.5-10.1); Carbon Dioxide 29.6 mMol/L (20.0-31.0); Chloride 103 mMol/L (98-107); Creatinine (Component) 1.1 mg/dL (0.6-1.3); Estimated Creatinine Clearance 103.9 mL/min (>60); Globulin 3.2 gm/dL (2.3-3.5); Glucose 105 mg/dL (74-106); Lipase 30 U/L (12-53); Osmolality,Calculated 284 (275-295); Potassium 3.8 mMol/L (3.4-5.1); Sodium 143 mMol/L (136-145); Total Protein 7.5 gm/dL (5.7-8.2); eGFR > 60 See Note
[2024-12-11 13:57] LABS: Amphetamine/Methamp Scrn,U Positive (Negative); Barbiturate Screen,Urine Negative (Negative); Benzodiazepines Screen,Urine Negative (Negative); Benzoylecgonine Screen, Ur Negative (Negative); Fentanyl Screen,Urine Negative (Negative); Opiate Screen,Urine Positive (Negative); THC Screen,Urine Positive (Negative)
[2024-12-11 14:52] VITALS: BP 123/76; PULSE 95; RESP 15; TEMP 37.3; O2SAT 98
[2024-12-11] MEDS: MAGNESIUM CITRATE 300 ML BTL PO (15:05)
== END 2024-12-11 15:45 | disposition home or self-care (01) ==
LOC: SERX 15:16
PROVIDERS: Nurse Practitioner Family; Emergency Provider Emergency Medicine
DX: N20.0 Calculus of kidney (principal); K22.6 Gastro-esophageal laceration-hemorrhage syndrome; K63.89 Other specified diseases of intestine; Z87.442 Personal history of urinary calculi
CPT/HCPCS: 36415; 74176; 80053; 80307; 81001; 83690; 85025; 85610; 86850; 86900; 86901; 96372; 99284; J1885; J2765; Q0162; A9270